=== PATIENT | female | born 1995 | race Hispanic/Latino ===

== ENCOUNTER → 2018-02-07 | Outpatient (CLI) | payer OTHER | END | disposition home or self-care (01) | LOC: RAH 11:15 | PROVIDERS: ATTEND Internal Medicine | DX: S72.91XD Unspecified fracture of right femur, subsequent encounter for closed fracture with routine healing (principal); S62.613D Displaced fracture of proximal phalanx of left middle finger, subsequent encounter for fracture with routine healing; S62.611D Displaced fracture of proximal phalanx of left index finger, subsequent encounter for fracture with routine healing; X58.XXXD Exposure to other specified factors, subsequent encounter; Y24.9XXD Unspecified firearm discharge, undetermined intent, subsequent encounter; Y93.89 Activity, other specified; Y92.89 Other specified places as the place of occurrence of the external cause; Y99.8 Other external cause status | CPT/HCPCS: 73130; 73502; 73552; 73562 ==